=== PATIENT | male | born 1980 | race Caucasian/White ===

== ENCOUNTER 2016-11-09 09:48 | Emergency (ER) | payer MEDICAID, OTHER ==
--- NOTE | 2016-11-09 10:25 | ED Physician Documentation ---
PD HPI TRUNK INJURY - Stated complaint Stated Complaint: SOA - Chief complaint Chief Complaint: General - History obtained from History obtained from: Patient - History of Present Illness Location: Center chest Type of injury: Fall (he was attempting backflip on trampoline when he landed onto head (on the bounding mat part of the trampoline), then had flexion of the chest area. Pain developed later in hour or two, with pain right/central chest, worse with deep breathing and moving.) Timing - details: Abrupt onset, Still present, Other Quality: Pain, Sharp, Aching Improved by: Rest Worsened by: Moving, Palpating Associated symtptoms: Weakness, Numbness, Feel faint Similar symptoms before: Has not had sx before Recently seen: Not recently seen Review of Systems Constitutional: denies: Fever, Chills, Myalgias Nose: denies: Rhinorrhea / runny nose, Congestion GI: denies: Abdominal Pain, Nausea, Vomiting : denies: Dysuria, Frequency Skin: denies: Rash, Lesions PD PAST MEDICAL HISTORY - Past Medical History Past Medical History: No Psych: Anxiety, Bipolar disorder - Past Surgical History Past Surgical History: Yes General: Cholecystectomy, Appendectomy Ortho: Other - Present Medications Home Medications: Ambulatory Orders Medication Instructions Recorded Confirmed Buprenorphine HCl/Naloxone HCl 11/09/16 [Suboxone 8-2 mg Sl tab] Ibuprofen 800 mg PO TID #30 tablet 11/09/16 Methocarbamol [Robaxin] 500 mg PO Q6H PRN #20 tablet 11/09/16 - Allergies Allergies/Adverse Reactions: Allergies Allergy/AdvReac Type Severity Reaction Status Date / Time Penicillins Allergy Rash Verified 11/09/16 09:54 - Social History Does the pt smoke?: Yes Smoking Status: Current every day smoker Does the pt drink ETOH?: Yes ETOH Use: Wine, Beer, Liquor Does the pt have substance abuse?: No - Immunizations Immunizations are current?: Yes - POLST Patient has POLST: No PD ED PE NORMAL - Vitals Vital signs reviewed: Yes - General General: Alert and oriented X 3, Well developed/nourished - HEENT HEENT: Moist mucous membranes, Pharynx benign - Neck Neck: Supple, no meningeal sign, No bony TTP, No adenopathy - Cardiac Cardiac: RRR, No murmur - Respiratory Respiratory: Clear bilaterally Results - Vitals Vitals: Vital Signs - 24 hr 11/09/16 11/09/16 11/09/16 09:51 11:04 12:19 Temperature 36.1 C L Heart Rate 94 84 90 Respiratory 16 20 16 Rate Blood Pressure 148/90 H 118/75 199/100 H O2 Saturation 100 94 95 Oxygen O2 Source Room air - Rads (name of study) chest xray Radiology: Prelim report reviewed (no acute process) PD MEDICAL DECISION MAKING - ED course Complexity details: reviewed results (normal chest xray), considered differential, d/w patient Departure - Departure Disposition: 01 Home, Self Care Clinical Impression: Chest wall muscle strain Qualifiers: Encounter type: initial encounter Qualified Code(s): S29.011A - Strain of muscle and tendon of front wall of thorax, initial encounter Condition: Stable Record reviewed to determine appropriate education?: Yes Instructions: ED Strain Chest Wall Ch Prescriptions: Ibuprofen 800 mg PO TID #30 tablet Methocarbamol [Robaxin] 500 mg PO Q6H PRN #20 tablet PRN Reason: Spasms Comments: Ibuprofen 800 mg three times daily (OTC or script); add Tylenol 650 mg 4 times daily for pain. Could also use muscle relaxant if needed for spasms. Off work for few days to a week as needed. Forms: Activity restrictions Discharge Date/Time: 11/09/16 12:19
[2016-11-09] MEDS ORDERED: IBUPROFEN 600 MG TABLET PO STA (10:44)
[2016-11-09] MEDS ORDERED: ACETAMINOPHEN 325 MG TABLET PO STA (10:44)
[2016-11-09] MEDS ORDERED: ACETAMINOPHEN 325 MG TABLET PO ONE (10:59)
[2016-11-09] MEDS ORDERED: IBUPROFEN 600 MG TABLET PO ONE (11:00)
--- NOTE | 2016-11-09 11:31 | XRAY Preliminary Report ---
Exam: XR Chest 2 View PA/LAT IMPRESSION: Normal 2-view chest radiography. [facility] SITE ID: [id number]
--- NOTE | 2016-11-09 11:34 | XRAY Report ---
EXAM: CHEST RADIOGRAPHY EXAM DATE: 11/09/2016 11:01 AM. CLINICAL HISTORY: Landed head first/then crumpled on trampoline. COMPARISON: None. TECHNIQUE: 2 views. FINDINGS: Lungs/Pleura: No focal opacities evident. No pleural effusion. No pneumothorax. Normal volumes. Mediastinum: Heart and mediastinal contours are unremarkable. Other: No acute skeletal abnormalities. IMPRESSION: Normal 2-view chest radiography. [facility] Referring Provider Line: [phone] SITE ID: [id number]
[2016-11-09 12:21] VITALS: BP 199/100
== END 2016-11-09 12:19 | disposition home or self-care (01) ==
LOC: ED 09:48
DX: S29.011A Strain of muscle and tendon of front wall of thorax, initial encounter (principal); W01.198A Fall on same level from slipping, tripping and stumbling with subsequent striking against other object, initial encounter; Y93.44 Activity, trampolining; F17.200 Nicotine dependence, unspecified, uncomplicated
CPT/HCPCS: 71020; 99283; A9270

== ENCOUNTER 2017-08-25 12:59 | Emergency (ER) | payer MEDICAID, OTHER ==
[2017-08-25] MEDS ORDERED: MELOXICAM 7.5 MG TABLET PO STA (13:59)
[2017-08-25] MEDS ORDERED: LORazepam 0.5 MG TABLET PO STA (13:59)
[2017-08-25] MEDS ORDERED: cloNIDine 0.1 MG TABLET PO STA (13:59)
--- NOTE | 2017-08-25 14:03 | ED Physician Documentation ---
History of Present Illness - Stated complaint Stated Complaint: MED REFILL - Chief complaint Chief Complaint: General - History obtained from History obtained from: Patient, Family - History of Present Illness Timing: Other (He has a history of addiction to oxycodone and OxyContin. [place] 3 [place] and is requesting a Suboxone refill.) Review of Systems Constitutional: denies: Fever, Chills GI: denies: Abdominal Pain, Nausea, Vomiting, Diarrhea PD PAST MEDICAL HISTORY - Past Medical History Past Medical History: Yes GI: GERD Psych: Anxiety, Bipolar disorder Musculoskeletal: Chronic back pain - Past Surgical History Past Surgical History: Yes General: Cholecystectomy, Appendectomy Ortho: Other - Present Medications Home Medications: Ambulatory Orders Medication Instructions Recorded Confirmed Buprenorphine HCl/Naloxone HCl 11/09/16 [Suboxone 8-2 mg Sl tab] Ibuprofen 800 mg PO TID #30 tablet 11/09/16 Methocarbamol [Robaxin] 500 mg PO Q6H PRN #20 tablet 11/09/16 Lorazepam [Ativan] 1 mg PO TID PRN #15 tablet 08/25/17 Meloxicam [Mobic] 7.5 mg PO BIDWM PRN #15 tablet 08/25/17 cloNIDine [Catapres] 0.1 mg PO BID #10 tablet 08/25/17 - Allergies Allergies/Adverse Reactions: Allergies Allergy/AdvReac Type Severity Reaction Status Date / Time Penicillins Allergy Rash Verified 11/09/16 09:54 - Social History Does the pt smoke?: Yes Smoking Status: Current every day smoker Does the pt drink ETOH?: Yes Does the pt have substance abuse?: No - Immunizations Immunizations are current?: Yes - POLST Patient has POLST: No PD ED PE NORMAL - Vitals Vital signs reviewed: Yes - General General: Alert and oriented X 3, No acute distress - Neuro Neuro: Alert and oriented X 3, Normal speech - Psych Psych: Normal mood, Normal affect Results - Vitals Vitals: Vital Signs - 24 hr 08/25/17 13:07 Temperature 36.2 C L Heart Rate 109 H Respiratory 20 Rate Blood Pressure 129/84 H O2 Saturation 98 Oxygen O2 Source Room air Departure - Departure Disposition: 01 Home, Self Care Clinical Impression: Opiate withdrawal Condition: Good Record reviewed to determine appropriate education?: Yes Instructions: ED Withdrawal Narcotic Prescriptions: cloNIDine [Catapres] 0.1 mg PO BID #10 tablet Lorazepam [Ativan] 1 mg PO TID PRN #15 tablet PRN Reason: Anxiety Meloxicam [Mobic] 7.5 mg PO BIDWM PRN #15 tablet PRN Reason: Pain Comments: Call your insurance company today to find a local primary care physician and/or Suboxone clinic. Your blood pressure was elevated today on check into the emergency department. This does not mean that you have hypertension, it is a common phenomenon to come to the emergency department and have elevated blood pressure. I recommend that you see your primary care physician within the week to have it rechecked when you are feeling better.
[2017-08-25 14:15] VITALS: BP 111/81
== END 2017-08-25 14:31 | disposition home or self-care (01) ==
LOC: ED 12:59
DX: F11.23 Opioid dependence with withdrawal (principal); F17.200 Nicotine dependence, unspecified, uncomplicated; R03.0 Elevated blood-pressure reading, without diagnosis of hypertension
CPT/HCPCS: 99283; A9270

== ENCOUNTER 2017-08-26 11:32 | Emergency (ER) | payer MEDICAID ==
[2017-08-26 11:44] VITALS: BP 122/79
--- NOTE | 2017-08-26 12:11 | ED Physician Documentation ---
PD HPI BACK INJURY - Stated complaint Stated Complaint: WITHDRAWL/BACK PX - History obtained from History obtained from: Patient - History of Present Illness Type of injury: Other (He has chronic low back pain just moved to the area yesterday. He presented yesterday complaining of Suboxone withdrawal. He was administered prescriptions for Ativan, clonidine, meloxicam. He returns today stating that this has not helped. There is no acute complaint. No fever.) Review of Systems Constitutional: denies: Fever, Chills Musculoskeletal: reports: Back pain. denies: Neck pain Neurologic: denies: Generalized weakness, Focal weakness, Numbness PD PAST MEDICAL HISTORY - Past Medical History GI: GERD Psych: Anxiety, Bipolar disorder Musculoskeletal: Chronic back pain - Past Surgical History Past Surgical History: Yes General: Cholecystectomy, Appendectomy Ortho: Other - Present Medications Home Medications: Ambulatory Orders Medication Instructions Recorded Confirmed Buprenorphine HCl/Naloxone HCl 11/09/16 [Suboxone 8-2 mg Sl tab] Ibuprofen 800 mg PO TID #30 tablet 11/09/16 Methocarbamol [Robaxin] 500 mg PO Q6H PRN #20 tablet 11/09/16 Lorazepam [Ativan] 1 mg PO TID PRN #15 tablet 08/25/17 Meloxicam [Mobic] 7.5 mg PO BIDWM PRN #15 tablet 08/25/17 cloNIDine [Catapres] 0.1 mg PO BID #10 tablet 08/25/17 - Allergies Allergies/Adverse Reactions: Allergies Allergy/AdvReac Type Severity Reaction Status Date / Time Penicillins Allergy Rash Verified 08/26/17 11:43 - Social History Does the pt smoke?: Yes Smoking Status: Current every day smoker Does the pt drink ETOH?: Yes Does the pt have substance abuse?: No - Immunizations Immunizations are current?: Yes - POLST Patient has POLST: No PD ED PE NORMAL - Vitals Vital signs reviewed: Yes - General General: Alert and oriented X 3, No acute distress, Well developed/nourished - Neuro Neuro: Alert and oriented X 3, Normal speech Eye Opening: Spontaneous Motor: Obeys Commands Verbal: Oriented GCS Score: 15 - Psych Psych: Normal mood, Normal affect Results - Vitals Vitals: Vital Signs - 24 hr 08/26/17 11:37 Temperature 36.6 C Heart Rate 118 H Respiratory 18 Rate Blood Pressure 122/79 O2 Saturation 95 Oxygen O2 Source Room air PD MEDICAL DECISION MAKING - ED course ED course: 36-year-old gentleman who just moved to the area yesterday presents with chronic low back pain requesting medications, specifically asks for oxycodone. I discussed with him that given the circumstances it was not appropriate for the emergency department to dispense or prescribe narcotics for chronic back pain. I offered lidocaine patches and Zofran for the nausea associated with his Suboxone withdrawal which he refused and ambulated out of the department in no apparent distress declining these prescriptions or discharge instructions Departure - Departure Disposition: 01 Home, Self Care Clinical Impression: Chronic back pain Qualifiers: Back pain location: low back pain Back pain laterality: midline Sciatica presence: unspecified whether sciatica present Qualified Code(s): M54.5 - Low back pain Condition: Stable Comments: He left the department without prescriptions or discharge instructions. Discharge Date/Time: 08/26/17 12:10
== END 2017-08-26 12:10 | disposition home or self-care (01) ==
LOC: ED 11:32
DX: Z53.9 Procedure and treatment not carried out, unspecified reason (principal)

== ENCOUNTER 2017-08-26 12:25 | Outpatient (CLI) | payer MEDICAID | END 2017-08-26 12:26 | disposition critical access hospital (66) | LOC: EMS 12:25 | PROVIDERS: ATTEND Surgery | DX: M79.604 Pain in right leg (principal); R20.0 Anesthesia of skin; W18.09XA Striking against other object with subsequent fall, initial encounter; Y92.481 Parking lot as the place of occurrence of the external cause ==

== ENCOUNTER 2017-08-26 12:31 | Emergency (ER) | payer MEDICAID ==
--- NOTE | 2017-08-26 12:38 | ED Physician Documentation ---
PD HPI BACK INJURY - Stated complaint Stated Complaint: GLF - History obtained from History obtained from: Patient, EMS - History of Present Illness Location: Upper Type of injury: Fall (He had just left the emergency department after a somewhat contentious visit asking for narcotic pain medications for chronic back pain. He admits he was somewhat upset by the last visit and was not really watching where he was going and tripped on a curb falling down and hitting his back. He has new and different back pain in the low thoracic spine which is in a new and different location than his usual chronic low back pain. No new neurologic symptoms. No head or neck injury.) Review of Systems Constitutional: denies: Fever, Chills Musculoskeletal: denies: Neck pain Neurologic: denies: Headache, Head injury, LOC PD PAST MEDICAL HISTORY - Past Medical History GI: GERD Psych: Anxiety, Bipolar disorder Musculoskeletal: Chronic back pain - Past Surgical History Past Surgical History: Yes General: Cholecystectomy, Appendectomy Ortho: Other - Present Medications Home Medications: Ambulatory Orders Medication Instructions Recorded Confirmed Buprenorphine HCl/Naloxone HCl 11/09/16 [Suboxone 8-2 mg Sl tab] Ibuprofen 800 mg PO TID #30 tablet 11/09/16 Methocarbamol [Robaxin] 500 mg PO Q6H PRN #20 tablet 11/09/16 Lorazepam [Ativan] 1 mg PO TID PRN #15 tablet 08/25/17 Meloxicam [Mobic] 7.5 mg PO BIDWM PRN #15 tablet 08/25/17 cloNIDine [Catapres] 0.1 mg PO BID #10 tablet 08/25/17 - Allergies Allergies/Adverse Reactions: Allergies Allergy/AdvReac Type Severity Reaction Status Date / Time Penicillins Allergy Rash Verified 08/26/17 11:43 - Social History Does the pt smoke?: Yes Smoking Status: Current every day smoker Does the pt drink ETOH?: Yes Does the pt have substance abuse?: No - Immunizations Immunizations are current?: Yes - POLST Patient has POLST: No PD ED PE NORMAL - Vitals Vital signs reviewed: Yes - General General: Alert and oriented X 3, No acute distress - HEENT HEENT: PERRL, EOMI - Neck Neck: Supple, no meningeal sign, No bony TTP, No bruit - Cardiac Cardiac: RRR, No murmur - Respiratory Respiratory: No respiratory distress, Clear bilaterally - Abdomen Abdomen: Normal bowel sounds, Soft, Non tender - Back Back: Other (He is tender to the low thoracic spine without deformity.) - Extremities Extremities: No deformity, No tenderness to palpate, Normal ROM s pain, Other ( Negative straight leg raise, equal patellar reflexes and normal sensation throughout the legs.) - Neuro Neuro: Alert and oriented X 3, Normal speech - Psych Psych: Normal mood, Normal affect Results - Vitals Vitals: Vital Signs - 24 hr 08/26/17 12:38 Temperature 37.1 C Heart Rate 101 H Respiratory 16 Rate Blood Pressure 116/78 O2 Saturation 94 Oxygen O2 Source Room air - Rads (name of study) T spine XR Radiology: EMP read contemporaneously (Wedging of T10 of unknown chronicity) CT T Spine Radiology: EMP read contemporaneously (Old findings only, no acute bony abnormality.) PD MEDICAL DECISION MAKING - ED course ED course: Consideration was given to the possibility of a cervical spine injury in this patient. The nexus criteria were applied. The patient has no focal neurologic deficit on examination. The patient has no midline spinal tenderness. The patient has a normal level of consciousness. The patient has no evidence of intoxication. There is no distracting injury presents. Given that these were all negative, per the Nexus criteria the cervical spine was cleared without imaging. He was offered a Toradol shot or something for nausea for his ongoing Suboxone withdrawal on arrival, both of which she declined/refused. There was a possible finding of a T10 fracture of unknown chronicity on the x- ray, at that point he was given a Percocet while waiting for a CT to confirm or deny the acuity of that issue, the CT showed no acute issues. He was offered multiple choices of nonnarcotic analgesia, all of which were declined again. Departure - Departure Disposition: 01 Home, Self Care Clinical Impression: Back pain Qualifiers: Back pain location: thoracic back pain Chronicity: acute Back pain laterality: midline Qualified Code(s): M54.6 - Pain in thoracic spine Chronic back pain Qualifiers: Back pain location: low back pain Back pain laterality: midline Sciatica presence: unspecified whether sciatica present Qualified Code(s): M54.5 - Low back pain; G89.29 - Other chronic pain; G89.29 - Other chronic pain Condition: Good Record reviewed to determine appropriate education?: Yes Instructions: ED Chronic Pain Management, ED Low Back Pain Injury Comments: Call your doctor to arrange a follow-up appointment, make the next available appointment. In the interim, return anytime if worse or if new symptoms develop.
[2017-08-26 12:42] VITALS: BP 116/78
--- NOTE | 2017-08-26 13:24 | XRAY Preliminary Report ---
Exam: XR THORACIC SPINE 2 VIEW IMPRESSION: 1. Slight increase in the mild to moderate wedging T10 since 11/09/2016, of indeterminate age. Dedica francis CT thoracic spine should be considered. 2. Progression of degenerative disk disease as well as mild kyphosis inferior third of the thoracic s pine. [facility] The above findings were discussed with CIARRA Novak by Dr. Deborah Maldonado at 13:23 hrs on 08/26/17. SITE ID: [id number]
[2017-08-26] MEDS ORDERED: oxyCOD/ACETAMIN 5 MG/325 MG TABLET PO STA (13:25)
--- NOTE | 2017-08-26 13:30 | XRAY Report ---
EXAM: THORACIC SPINE RADIOGRAPHY EXAM DATE: 08/26/2017 01:04 PM. CLINICAL HISTORY: Mid thoracic pain after a fall today. COMPARISON: Two-view chest 11/09/2016. TECHNIQUE: 3 views. FINDINGS: Alignment: Increasing mild kyphosis centered at T8-T9. Bones: Remote mild wedging T6, T7 and T11. Remote mild to moderate wedging T8 and T9. Slight increase in the degree of mild to moderate wedging T10 without retropulsed bone fragments, ind eterminate age. Disks: Progression of moderate degenerative changes T7-T8, T8-T9, and T9-T10 consisting of moderate n arrowing, small osteophytes and subcortical sclerosis along the endplates. Soft Tissues: Normal. The visualized lungs and cardiomediastinal silhouette are normal. IMPRESSION: 1. Slight increase in the mild to moderate wedging T10 since 11/09/2016, of indeterminate age. Dedica francis CT thoracic spine should be considered. 2. Progression of degenerative disk disease as well as mild kyphosis inferior third of the thoracic s pine. [facility] The above findings were discussed with CIARRA Novak by Dr. Deborah Maldonado at 13:23 hrs on 08/26/17. Referring Provider Line: [phone] SITE ID: [id number]
--- NOTE | 2017-08-26 14:15 | CT Preliminary Report ---
Exam: CT THORACIC SPINE W/O IMPRESSION: No acute bony abnormality. [facility] SITE ID: [id number]
--- NOTE | 2017-08-26 14:20 | CT Report ---
EXAM: CT THORACIC SPINE WITHOUT CONTRAST EXAM DATE: 08/26/2017 01:53 PM. CLINICAL HISTORY: T10 fracture. Mid thoracic back pain after a fall today. COMPARISONS: No prior CT exam. Thoracic spine study earlier today. TECHNIQUE: Thin-section axial images were acquired of the thoracic spine from superior endplate of C4 to L1-L2 without contrast. Post-processing: Coronal and sagittal reformats. Other: None. IV Contrast : None. In accordance with CT protocol optimization, one or more of the following dose reduction techniques w ere utilized for this exam: automated exposure control, adjustment of mA and/or KV based on patient s ize, or use of iterative reconstructive technique. FINDINGS: Alignment: Moderate kyphosis centered at T9-T10. Bones: No acute trabecular or cortical disruption. Old mild anterior wedging as follows: T3, T7, T11, T12. Old mild to moderate wedging T8, T9 and T10. Small bilateral cervical ribs, anatomic variant. Disk Levels/Facets: No compromise of the central spinal canal. C7-T1: Unremarkable. T1-T2: Unremarkable. T2-T3: Mild degenerative disk disease. T3-T4: Mild degenerative disk disease. T4-T5: Mild degenerative disk disease. T5-T6: Unremarkable. T6-T7: Mild degenerative disk disease. T7-T8: Moderate degenerative disk disease. T8-T9: Moderate degenerative disk disease. T9-T10: Moderate degenerative disk disease. T10-T11: Moderate degenerative disk disease. T11-T12: Unremarkable. T12-L1: Unremarkable. Musculature: Normal. No fatty atrophy. Other: The visualized lungs, mediastinum, and abdominal cavity are unremarkable. IMPRESSION: No acute bony abnormality. [facility] Referring Provider Line: [phone] SITE ID: [id number]
== END 2017-08-26 14:40 | disposition home or self-care (01) ==
LOC: ED 12:31
DX: M54.6 Pain in thoracic spine (principal); M54.5 Low back pain; G89.29 Other chronic pain; F17.200 Nicotine dependence, unspecified, uncomplicated; Z91.81 History of falling
CPT/HCPCS: 72070; 72128; 99283; A9270

== ENCOUNTER 2018-02-14 08:13 | Emergency (ER) | payer MEDICAID ==
[2018-02-14 08:19] VITALS: BP 132/80
--- NOTE | 2018-02-14 08:33 | ED Physician Documentation ---
History of Present Illness - Stated complaint Stated Complaint: MED REFILL - Chief complaint Chief Complaint: General - History obtained from History obtained from: Patient - History of Present Illness Timing: Other (37-year-old gentleman currently homeless with poor access to healthcare has bipolar disorder and is here requesting refills of his Lamictal and Abilify. He has no acute complaints.) Review of Systems Constitutional: reports: Reviewed and negative Cardiac: reports: Reviewed and negative Respiratory: reports: Reviewed and negative PD PAST MEDICAL HISTORY - Past Medical History Past Medical History: Yes GI: GERD Psych: Anxiety, Bipolar disorder Musculoskeletal: Chronic back pain - Past Surgical History Past Surgical History: Yes General: Cholecystectomy, Appendectomy Ortho: Other - Present Medications Home Medications: Ambulatory Orders Medication Instructions Recorded Confirmed Buprenorphine HCl/Naloxone HCl 11/09/16 [Suboxone 8-2 mg Sl tab] Aripiprazole [Abilify] 10 mg PO QPM 02/14/18 02/14/18 Aripiprazole [Abilify] 10 mg PO QPM #30 tablet 02/14/18 lamoTRIgine [LaMICtal] 3 tab PO DAILY #90 tablet 02/14/18 lamoTRIgine [LaMICtal] 300 mg PO DAILY 02/14/18 02/14/18 - Allergies Allergies/Adverse Reactions: Allergies Allergy/AdvReac Type Severity Reaction Status Date / Time Penicillins Allergy Rash Verified 02/14/18 08:19 - Social History Does the pt smoke?: Yes Smoking Status: Current every day smoker Does the pt drink ETOH?: Yes Does the pt have substance abuse?: No - Immunizations Immunizations are current?: Yes - POLST Patient has POLST: No PD ED PE NORMAL - Vitals Vital signs reviewed: Yes - General General: Alert and oriented X 3, No acute distress - Neuro Neuro: Alert and oriented X 3, Normal speech - Psych Psych: Normal mood, Normal affect Results - Vitals Vitals: Vital Signs - 24 hr 02/14/18 08:18 Temperature 36.4 C L Heart Rate 75 Respiratory 18 Rate Blood Pressure 132/80 H O2 Saturation 98 Oxygen O2 Source Room air Departure - Departure Disposition: 01 Home, Self Care Clinical Impression: Medication refill Bipolar disorder Qualifiers: Active/Remission status: currently active Current bipolar episode type: mixed Current episode severity: moderate Qualified Code(s): F31.62 - Bipolar disorder, current episode mixed, moderate Condition: Good Record reviewed to determine appropriate education?: Yes Instructions: ED Manic Depression Prescriptions: Aripiprazole [Abilify] 10 mg PO QPM #30 tablet lamoTRIgine [LaMICtal] 3 tab PO DAILY #90 tablet Comments: Follow-up with [facility] at [phone] to schedule psychiatric care and counseling.
== END 2018-02-14 08:36 | disposition home or self-care (01) ==
LOC: ED 08:13
DX: F31.62 Bipolar disorder, current episode mixed, moderate (principal); Z59.0 Homelessness
CPT/HCPCS: 99282; 99283